=== PATIENT | female | born 1950 | race Asian ===

== ENCOUNTER 2021-01-16 03:06 | Emergency (ER) | payer MEDICARE, OTHER ==
[~2021-01-16] VITALS: Ht 157.5 cm; Wt 140.0 kg
[2021-01-16] MEDS ORDERED: KETOROLAC TROMETHAMINE 30 MG/ML VIAL IM ONE (03:15)
[2021-01-16] MEDS ORDERED: ONDA4TAB10 PO (03:21)
[2021-01-16] MEDS ORDERED: PRAV40TA4 PO (03:21)
[2021-01-16] MEDS ORDERED: AMLO10TA55 PO (03:21)
[2021-01-16] MEDS ORDERED: HYDR-4061 PO (03:21)
[2021-01-16] MEDS ORDERED: LORA-1000 PO (03:21)
[2021-01-16] MEDS ORDERED: PROC5TAB54 PO (03:21)
[2021-01-16] MEDS ORDERED: IBUP-2076 PO (03:21)
[2021-01-16] MEDS ORDERED: TRAM50TA4 PO (03:21)
[2021-01-16] MEDS ORDERED: PB/HYOSCY/ATR/SCOP/LIDO/MAALOX 55 ML BOTTLE PO ONE (03:30)
[2021-01-16] MEDS ORDERED: DiphenhydrAMINE HCL 50 MG/ML VIAL IM STA (04:21)
[2021-01-16 04:30] VITALS: BP 148/100
[2021-01-16] MEDS ORDERED: METOCLOPRAMIDE HCL 5 MG/ML 2 ML VIAL IM ONE (04:30)
== END 2021-01-16 04:58 | disposition home or self-care (01) ==
LOC: EMS 03:08
DX: R51.9 Headache, unspecified (principal); Z76.5 Malingerer [conscious simulation]
CPT/HCPCS: 96372; 99284; J1200; J1885; J2765